=== PATIENT | male | born 1995 | race Caucasian/White ===

== ENCOUNTER 2020-09-23 14:49 | Outpatient (REF) | payer SELFPAY | END 2020-09-23 14:50 | disposition home or self-care (01) | LOC: HO.LAB 14:49 | PROVIDERS: Visit Provider Internal Medicine | DX: Z20.828 Contact with and (suspected) exposure to other viral communicable diseases (principal) | CPT/HCPCS: C9803; U0003 ==

== ENCOUNTER 2025-08-10 21:23 | Emergency (ER) | payer OTHER, SELFPAY ==
[2025-08-10 21:25] VITALS: BP 130/64; PULSE 59; RESP 20; TEMP 36.3; O2SAT 100; BMI 26.6
--- OUTSIDE RECORDS SUMMARY | 2025-08-10 22:09 | XMS_ITS | Clinical Summary ---
Author Organization [facility] Address [address] [place], [place] [id number] Phone Care Team Providers Care Missing Persons Investigator Name Role Phone Unavailable Primary Care Provider Unavailabl e Immunizations Immunization Administration Dates Next Due DTP 04/01/1996, 5,04/19/1995,03/01 DTaP 5 03/08/2000 Hep B, ped/adol 07/03/1995,1994,1994 Hib (PRP-T) 04/01/1996, 5,04/19/1995,03/01 IPV 03/08/2000 Influenza Split 07/18/2012,07/13/2011 Influenza, injectable, quadr ivalent, preservative free 08/29/2013 Influenza, injectable, trivalent 06/23/2009 MMR 03/08/2000,04/01/1996 Meningococcal Conj (Menactra) MCV4P 05/24/2006 OPV 07/03/1995,04/19/1995,03/01/1995 Tdap 05/24/2006 Varicella 06/05/2007,05/28/1998 Family History Relation Name Status Comments Brother Alive Brother: Alive and well Father Alive Father: Alive a nd well Mother Alive Mother: Alive a nd well Sister Alive Sister: Alive a nd well Social History Tobacco Use Types Packs/Day Years Used Date Smoking Tobacco: Former Comments:Former smoker Sex and Gender Information Value Date Recorded Sex Assigned at Not on file Legal Sex Male 4:43 PM EDT Gender Identity Not on file Sexual Orientation Not on file Last Filed Vital Signs Vital Sign Reading Time Taken Comments Blood Pressure 120/70 08/29/2013 12:00 AM EST Pulse 80 07/18/2012 12:00 AM EDT Temperature 35.7 C (96.2 F) 08/29/2013 12:00 AM EST Respiratory Rate - - Oxygen Saturation - - Inhaled Oxygen Concentration - - Weight 79.4 kg (175 lb) 08/29/2013 12:00 AM EST Height 175.3 cm (5' 9 ) 08/29/2013 12:00 AM EST Body Mass Index 25.84 08/29/2013 12:00 AM EST Plan of Treatment Health Maintenance Due Date Last Done Comments DTaP,Tdap,and Td Vaccines (7 - Td or Tdap) 05/24/2016 05/24/2006, 03/08/2000, 04/01/1996, Additional history exists HPV Vaccines (1 - 3-dose SCDM series) 2021 Influenza Vaccines (#1) 2025 08/29/20 13, 07/18/2012, 07/13/2011, Additional history exists COVID-19 Vaccine (2024- season) 2025 Hepatitis B Vaccines Completed 07/03/1995, 1994, 1994 HIB Vaccines Completed 04/01/1996, 06/23, 04/19/1995, Additional history exists IPV Vaccines Completed 03/08/2000, 06/23, 04/19/1995, Additional history exists MMR Vaccines Completed 03/08/2000, 04/01/1996 Meningococcal Vaccine Aged Out 05/24/2006 No aftab mraa eligible based on patient's age to complete this topic Varicella Vaccines Completed 06/05/2007, 05/28/1998 Hepatitis A Vaccines Aged Out No long er eligible based on patient's age to complete this topic Men B Vaccine Aged Out No longer elig ible based on patient's age to complete this topic Pneumococcal Vaccine Aged Out No long er eligible based on patient's age to complete this topic
--- OUTSIDE RECORDS SUMMARY | 2025-08-10 22:09 | XMS_ITS | Encounter Summary ---
Author Organization [facility] Address [address] [place] [id number] Phone Care Team Providers Care Triage Rn Name Role Phone Sonam Fonseca MD Primary Care Provider Encounter Details Date Type Department Care Team (Late st Contact Info) Description 06/08/2017 Conversion Encounter [facility] [address] [place] [address] Social History Tobacco Use Types Packs/Day Years Used Date Smoking Tobacco: Former Comments:Former smoker Sex and Gender Information Value Date Recorded Sex Assigned at Not on file Legal Sex Male 4:43 PM EDT Gender Identity Not on file Sexual Orientation Not on file documented as of this encounter Plan of Treatment Not on file documented as of this encounter Visit Diagnoses Not on filedocumented in this encounter Care Teams Triage Rn Relationship Specialty Start Date End Date Sonam Fonseca MD [address] [place] [address] PCP - General 06/02/17 05/23/23 documented as of this encounter
--- NOTE | 2025-08-10 23:14 | ED.FALL ---
HPI - Fall General Chief Complaint: Eye Problems Stated Complaint: fell injured eye/bleeding Time Seen by Provider: 08/10/25 22:20 Source: patient Mode of arrival: ambulatory Limitations: no limitations History of Present Illness ED Provider: Dr. Zonia Canseco HPI Narrative: 29-year-old male with no significant past medical history presenting after a fall that occurred at home. States that he was sitting on a step and lean forward, lost his footing and fell face 1st into a grand it step. Has several lacerations around his right eye and the bridge of his nose. No loss of consciousness. No vomiting. No changes in his vision. He is unclear on his last tetanus shot. Denies headache. No numbness/tingling/weakness of the extremities. Denies alcohol or illicit substance use today. Related Data Allergies Allergy/AdvReac Type Severity Reaction Status Date / Time No Known Allergies Allergy Verified 08/10/25 21:29 Review of Systems Review of Systems: as per HPI, full review of systems performed and negative but for the above mentioned pertinent positives and negatives. [facility] Social History Social History Smoked in Last 30 Days: Yes Use of substances other than those prescribed or required for medical reasons: No Advance Directives: No Advance Directives Information Provided: No Physical Exam Exam: Exam: GENERAL: Uncomfortable-Appearing, conversant, mild distress due to pain. SKIN: Normal skin color for ethnicity, warm, dry, lacrations as noted below, suerpficial abrasions overlying the cheek and nose. HEENT:? Normocephalic, no stridor, airway patent, no Billings sign, dentition intact, EOMI, PERRLA, no painful eye movement, periorbital edema/ecchymosis of the R eye, no crepitus. NECK: Soft, supple, full ROM, midline structures nontender, no step-offs, no deformities, no lymphadenopathy. CHEST: Heart regular rate and rhythm, no murmurs, symmetric chest rise and fall, no crepitus. PULMONARY: Clear to auscultation bilaterally, no labored breathing, no wheezes/rhales/rhonchi. ABDOMINAL: Soft, nondistended, nontender, positive bowel sounds in all quadrants. : Deferred. MUSCULOSKELETAL: Normal tone, full range of motion, no deformities, no contusions. NEURO: Alert and oriented x3, CN II through XII intact, equal strength and sensation bilateral upper and lower extremities, no focal neurologic deficits.? PSYCHIATRIC: Anxious affect, fluid speech, good eye contact and appropriate demeanor. Vital Signs: Vital Signs: Last Vital Signs Temp 97.3 F 08/10/25 21:25 Pulse 59 08/10/25 21:25 Resp 20 08/10/25 21:25 BP 130/64 08/10/25 21:25 Pulse Ox 100 08/10/25 21:25 O2 Del Method Room Air 08/10/25 21:25 BMI result Body Mass Index 26.6 Eyes: Eyes/upper lids images:  1. laceration #1 2. laceration #2 3. laceration #3 Medications Administered Discontinued Medications Generic Name Dose Route Start Last Admin Trade Name Freq PRN Reason Stop Dose Admin Lidocaine HCl 10 ml 08/10/25 23:13 08/10/25 23:21 Lidocaine Hcl 1 % 20 Ml Vial INFILTRATI 08/10/25 23:14 10 ml ONCE ONE Administration Procedures Laceration Laceration 1: Site: face Side (If applicable): right Size (cm): 1.5 Description: linear Depth: simple, single layer Local Anesthetic: lidocaine 1% Amount of anesthesia used (mL): 1 Pre-repair: wound explored Skin layer closed with: other (Chromic gut) Size (cm): 5-0 Number of sutures: 1 Technique: simple, interrupted Laceration 2: Site: face Side (If applicable): right Size (cm): 2.5 Description: linear Depth: simple, single layer Local Anesthetic: lidocaine 1% Amount of anesthesia used (mL): 2 Pre-repair: wound explored Skin layer closed with: other (Chromic gut) Size (cm): 5-0 Number of sutures: 3 Laceration 3: Site: face Side (If applicable): right Size (cm): 0.5 Description: linear Depth: simple, single layer Pre-repair: wound explored Skin layer closed with: steri-strips Number of sutures: 1 Medical Decision Making Medical Decision Making MDM Narrative: Patient presents today with chief complaint of laceration, facial trauma. Differential diagnosis would include foreign body, tendon or ligament injury, open fracture, wound infection, among many others. Patient had some facial trauma today but is refusing imaging. He is also refusing tetanus shot. I had extensive discussion with him about the risks and benefits of both of these things however, patient continues to refuse. He is not intoxicated as evidenced by clear speech and a steady gait. He has a capacity to make his own decisions. Certainly potential for orbital floor fracture as well as nasal bone fractures, injury to the lacrimal duct due to the location of his wounds. He is having normal tearing, no changes in his vision. Laceration was thoroughly cleansed in the emergency department and probed for any foreign bodies. There were none. There is no evidence of tendon or ligament injury at this time based on physical exam. There is a normal neurovascular examination before and after repair. Wound care was discussed with patient as well as a specific time to have raghu or sutures removed if necessary. Signs infection were also discussed and the patient was urged to come immediately back to the emergency department for reevaluation if they do occur. Differential Diagnosis Differential Diagnoses: The differential diagnosis associated with the presentation includes (As above) Admission/Observation Consideration of admission/observation: Escalation of care including admission/observation considered Independent Historian Clinical information obtained from an independent historian. History obtained from or confirmed by: Spouse Discharge Plan Discharge Clinical Impression: Facial trauma, Laceration of eyelid and periocular area, Laceration of nose without complication, Periorbital contusion of right eye Patient Disposition: Home, Self-Care Instructions: Care For Your Absorbable Stitches (ED), Facial Laceration (ED) Additional Instructions: Keep your wound clean and dry for the next 24 hours. After that, you may get it wet but just pat the area dry. Do not scrub or use cleansing wash on your face until your wound is healed. You have multiple lacerations on her face that required stitches. You have absorbable stitches and do not need to have these removed however, if you notice any new or worsening swelling, drainage from your eye, redness around the wounds or if you develop a fever, he should return to the hospital or an urgent care right away to have a provider look at these. Eventually these will absorb on their own. Sometimes it can take several weeks. Hitting her face this hard can result in a concussion. Signs and symptoms of a concussion include: Headaches, nausea, brain fog, difficulty focusing. The treatment for concussion is to rest your brain. This means no visual or auditory stimulation including cell phones, computers, television or music. Try to rest in a dark room for the next couple of days. Pay close attention to your vision over the next several days. If you notice any changes including blurry vision, double vision, a curtain falling over your vision or any other concerning changes, he should return to the hospital immediately or see an government employee right away. Trauma to the eye can result in a retinal detachment which is an ophthalmologic emergency and you could lose your vision completely. Use Tylenol for pain and headaches. Use ice to help with the swelling of your eyelid. I hope you feel better. Print Language: Greenlandic
[2025-08-10] MEDS: Lidocaine HCl 1 % 20 ML VIAL 10 ML INFILTRATI (23:21)
[2025-08-11 00:19] VITALS: BP 124/63; PULSE 60; RESP 16; TEMP 36.8; O2SAT 95
== END 2025-08-11 00:20 | disposition home or self-care (01) ==
PROVIDERS: Emergency Provider Emergency Medicine
DX: S01.111A Laceration without foreign body of right eyelid and periocular area, initial encounter (principal); S01.21XA Laceration without foreign body of nose, initial encounter; W10.9XXA Fall (on) (from) unspecified stairs and steps, initial encounter; Y93.9 Activity, unspecified; Y92.9 Unspecified place or not applicable
CPT/HCPCS: 12013; 99284; J2003